=== PATIENT | female | born 1985 | race Caucasian/White ===

== ENCOUNTER 2022-07-21 19:31 | Outpatient (CLI) | payer BC, SELFPAY ==
--- NOTE | 2022-07-21 20:20 | PC.NURSE ---
2013- PAGED DR. ABBY COLUNGA
--- NOTE | 2022-07-21 20:32 | PC.NURSE ---
2025- DR. ABBY COLUNGA RETURNED PAGE. INFORMED OF PT ADMISSION FOR R/O ROM. ROMPLUS-NEGATIVE. NST-REACTIVE. ORDERS RECEIVED TO D/C HOME WITH INSTRUCTIONS ON WHEN TO RETURN TO L&D.
== END 2022-07-21 19:32 | disposition home or self-care (01) ==
PROVIDERS: Visit Provider Obstetrics & Gynecology
DX: O26.851 Spotting complicating pregnancy, first trimester (principal); Z3A.00 Weeks of gestation of pregnancy not specified
CPT/HCPCS: 59025; 84112

== ENCOUNTER 2022-08-22 00:01 | Inpatient (IN) | payer BC, SELFPAY ==
[2022-08-22] VITALS (118 sets, daily range): BP systolic 56–138; BP diastolic 26–124; PULSE 55–146; RESP 16; TEMP 36.2–36.9; O2SAT 73–100; BMI 31.3
[2022-08-22 00:57] LABS: Basophils Percent Auto 0.3 % (0.2-1.2); Eosinophils Absolute Auto 0.1 K/mm3 (0-0.3); Eosinophils Percent Auto 1.2 % (0-4.4); Hematocrit 34.8 % (37.0-47.0); Hemoglobin 11.9 g/dL (12.0-15.0); Immature Granulocyte Absolute 0.15 K/mm3 (0.00-0.031); Immature Granulocyte Percent A 1.6 % (0-0.5); Lymphocytes Absolute Auto 1.76 K/mm3 (0.9-3.2); Lymphocytes Percent Auto 18.5 % (18.3-44.2); Mean Corpuscular HGB Conc 34.2 g/dl (32-36); Mean Corpuscular Hemoglobin 31.8 pg (26-34); Mean Platelet Volume 10.3 fl (7.4-10.4); Monocytes Absolute Auto 0.9 K/mm3 (0.1-0.6); Monocytes Percent Auto 9.1 % (2.6-8.5); Neutrophils Absolute Auto 6.6 K/mm3 (1.3-6.7); Neutrophils Percent Auto 69.3 % (45.5-73.1); Platelet Count Result 198 k/mm3 (150-375); Red Blood Count 3.74 M/mm3 (4.2-5.4); Red Cell Distribution Width 13.3 % (11.5-14.5); White Blood Count 9.5 K/mm3 (4.5-10.0)
[2022-08-22] MEDS: LACTATED RINGERS 1,000 ML 125 ML IV CONT ×2 (01:15→07:06)
[2022-08-22] MEDS: AMPICILLIN 2 GM/NS 100 ML 2 GM/100 ML BAG IVPB (01:15)
[2022-08-22] MEDS: OXYTOCIN 30 UNITS/NS 500 ML 30 UNITS/500 ML BAG IV CONT (01:15)
[2022-08-22] MEDS: AMPICILLIN 1 GM/NS 50 ML 1 GM/50 ML BAG IVPB ×2 (05:07→09:07)
[2022-08-22] MEDS: fentaNYL CITRATE INJ (*CRX) 100 MCG/2 ML VIAL IV PUSH (07:06)
[2022-08-22] MEDS: ONDANSETRON INJ 4 MG/2 ML VIAL IV PUSH (07:06)
--- NOTE | 2022-08-22 07:16 | WPDANESEPP ---
Anes - Eval Pre Procedure Procedure: labor epidural Date/Time: 08/22/22 07:16 Surgeon: min Preop Diagnosis: pain during labor Pre Op Diagnosis: IOL Patient Data Age: 37 Gender: F Height: 1.73 m Weight: 93.5 kg Last Vital Signs Temp 36.3 C L 08/22/22 06:31 Pulse 88 08/22/22 06:45 Resp 16 08/22/22 05:00 BP 119/60 08/22/22 06:45 O2 Del Method Room Air 08/22/22 00:41 Allergies Allergy/AdvReac Type Severity Reaction Status Date / Time No Known Allergies Allergy Verified 08/01/22 12:32 Home Medications Medication Instructions Recorded Confirmed Type vit no.95-ferrous 1 tablet PO DAILY 08/22/22 08/22/22 History fumarate 28 mg-folic acid 800 mcg tablet () Laboratory Tests 08/22/22 08/22/22 08/22/22 00:18 00:18 00:18 WBC 9.5 K/mm3 K/mm3 (4.5-10.0) RBC 3.74 M/mm3 L M/mm3 (4.2-5.4) Hgb 11.9 g/dL L g/dL (12.0-15.0) Hct 34.8 % L % (37.0-47.0) MCV 93.0 fl fl (80-100) MCH 31.8 pg pg (26-34) MCHC 34.2 g/dl g/dl (32-36) RDW 13.3 % % (11.5-14.5) Plt Count 198 k/mm3 k/mm3 (150-375) MPV 10.3 fl fl (7.4-10.4) Immature Gran % (Auto) 1.6 % H % (0-0.5) Neut % (Auto) 69.3 % % (45.5-73.1) Lymph % (Auto) 18.5 % % (18.3-44.2) [place] % (Auto) 9.1 % H % (2.6-8.5) Eos % (Auto) 1.2 % % (0-4.4) Baso % (Auto) 0.3 % % (0.2-1.2) Lymph # (Auto) 1.76 K/mm3 K/mm3 (0.9-3.2) [place] # (Auto) 0.9 K/mm3 H K/mm3 (0.1-0.6) Eos # (Auto) 0.1 K/mm3 K/mm3 (0-0.3) Baso # (Auto) 0.0 K/mm3 K/mm3 (0.0-0.1) Abs Immat Gran (auto) 0.15 K/mm3 H K/mm3 (0.00-0.031) Absolute Neuts (auto) 6.6 K/mm3 K/mm3 (1.3-6.7) Absolute Nucleated RBC 0.0 K/mm3 K/mm3 (0.0-0.012) Nucleated RBC % 0.0 % % (0.0-0.2) RPR Pending Blood Type A Positive Antibody Screen Negative Patient hx anesthesia problems: none Family hx anesthesia problems: none Results Review: All pre-operative results and documents have been reviewed as part of the pre-operative evaluation. [facility] Past Medical History Medical History (Updated 08/22/22 @ 07:16 by Morena Infante CRNA) IUP (intrauterine ), incidental Family History Family History (Updated 08/01/22 @ 12:34 by Kayla Lewis RN) Mother Epilepsy Grandparent Acute myocardial infarction Hypertension High cholesterol Grandparent Diabetes mellitus Hypertension Social History Social History Smoking status: Never smoker Second hand tobacco smoke exposure: No Substance use: never Lack of Transportation: No Lack of Food: Never True Current Housing: I Have Housing Concerned About Future Housing: No Difficulty Paying Gas/Electric Bills: No Difficulty Paying for Meds: No Currently Unemployed: No Education: Bachelor's Degree Difficulty w/ Childcare or Family Care: No Spiritual care concerns: No Exam Day of Procedure 08/22/22 07:16
--- NOTE | 2022-08-22 09:00 | WPDOBADMIT ---
Obstetrics - Admit Note Admission Note: record reviewed. Additions to the history and/or subsequent changes in the physical findings follow. 37 y/ol at 39 3/7 weeks gestation here for induction of labor. Receiving oxytocin IV, now feeling painful contractions. Has epidural which is functioning well on left side, but has a hot spot on the right. GBS pos, receiving ampicillin. AVSS NST reactive TOCO: contractions every 4-5 min ABD soft, nontender, gravid, vertex EXT nontender Cervix 4/80/-2. AROM with clear fluid. A: IUP at term with favorable cervix, desiring induction of labor. GBS pos. P: Oxytocin, ampicillin. Anticipate .
[2022-08-22 09:17] LABS: Rapid Plasma Reagin Non-Reactive (NonReactive)
[2022-08-22] MEDS: LIDOCAINE HCL 1% PF 30 ML VIAL (10:30)
--- NOTE | 2022-08-22 10:44 | PM.OBPRVD ---
OB - Delivery Note Procedure Delivery date: 08/22/22 Procedure: Induction of labor with Induction method: Per Pitocin Protocol Delivery augmentation: Rupture of Membranes Delivery monitor: External FHT and External Uterine Route of delivery: Episiotomy description: Midline Laceration Description: None Delivery repair: vicryl (3-0) Specimen: Yes (Cord blood) Quantitative Blood Loss (ml): 330 Anesthesia type: Epidural Disposition: PACU Complications: None Narrative: 37 y/o at 39 3/7 weeks gestation who presented to the hospital for induction of labor. Oxytocin was administered intravenously. She received ampicillin for GBS colonization. Amniotomy was performed with return of clear fluid. She received an epidural for pain control. Her labor progressed and her cervix dilated completely. She pushed and brought the head to the perineum. The perineum was infiltrated with 10 mL of 1% lidocaine and a midline episiotomy was performed. The infant's head delivered to the perineum, followed by the body. The nose and mouth were bulb suctioned. After a delay, the cord was clamped and cut. The was handed off the field. Cord blood was collected. The placenta delivered spontaneously and was grossly normal in appearance. The usual 3 vessel cord was noted. The episiotomy site was inspected and found to be free of extension. This was reapproximated using 3 0 Vicryl in the usual layered fashion. Excellent hemostasis resulted as did excellent reapproximation of the normal anatomy. Needle and instrument counts were correct. The patient was taken to recovery room in stable condition. The infant went to the nursery in stable condition. I was present and scrubbed for the entire delivery. [place] Baby Date of : 08/22/22 Time of : 10:26 Weeks of gestation at delivery: 39 gender: Male Weight (pounds): 8 Weight (ounces): 5 presentation: vertex position: Right Occiput Anterior Placenta delivery description: Spontaneous and Normal Configuration Cord Vessel Description: 3 Vessels and Delayed Cord Clamping score one minute: 8 score five minutes: 9
--- NOTE | 2022-08-22 10:44 | PM.OBDSVD ---
DS: Admitting Diagnosis Discharge Date 08/24/22 Admitting Diagnosis IUP at 39 3/7 weeks GBS positive DS: Discharge Diagnosis Discharge Diagnosis (1) (normal spontaneous vaginal delivery): Code(s): O80 - Encounter for full-term uncomplicated delivery Status: Acute (2) GBS (group B Streptococcus carrier), +RV culture, currently : Code(s): O99.820 - Streptococcus B carrier state complicating Status: Acute OB - DS: Summary OB Procedures : None OB Procedures Intrapartum: Spontaneous Vag Delivery, Episiotomy (midline) and GBS prophylaxis OB Procedures: : None Time Spent with Patient Time attestation: Total time spent providing and/or coordinating discharge services: DS: Data Data Completed and Pending Labs on day of discharge: Labs from last 24 hours 08/22/22 08/22/22 08/22/22 00:18 00:18 00:18 WBC 9.5 RBC 3.74 L Hgb 11.9 L Hct 34.8 L MCV 93.0 MCH 31.8 MCHC 34.2 RDW 13.3 Plt Count 198 MPV 10.3 Immature Gran % (Auto) 1.6 H Neut % (Auto) 69.3 Lymph % (Auto) 18.5 [place] % (Auto) 9.1 H Eos % (Auto) 1.2 Baso % (Auto) 0.3 Lymph # (Auto) 1.76 [place] # (Auto) 0.9 H Eos # (Auto) 0.1 Baso # (Auto) 0.0 Abs Immat Gran (auto) 0.15 H Absolute Neuts (auto) 6.6 Absolute Nucleated RBC 0.0 Nucleated RBC % 0.0 RPR Non-reactive Blood Type A Positive Antibody Screen Negative Discharge Plan Discharge Attending physician on discharge: Dandy Brennan Discharging Clinician: Dandy Brennan Patient Disposition: Home, Self-Care Activity: pelvic rest Diet: regular Discharge Instructions: Education: Mom and Baby Guide Given to: Mother Follow-Up: Call your delivering provider's office for an appointment to be seen in: 6 Weeks Mom and baby should come to the [facility] for the follow-up appointment. Appointment Date/Time: August 25, 2022 at 11:00 am What to expect at your follow-up visit: Blood Pressure Check Physical Assessment Call [phone] if you are unable to keep your appointment time. BREAST CARE: * Wear a snug supportive bra. * For engorgement discomfort: Bottle Feeding: * May apply ice packs * Do NOT pump milk from breasts, this will encourage your body to produce more milk *Take Ibuprofen 600 mg every 6 hours around the clock to help with pain and swelling EPISIOTOMY/PERINEAL CARE: * Until bleeding stops, use your rossy bottle after urinating * Change your pad frequently throughout the day * You may take sitz baths several times a day (fill your bathtub with warm water and soak for 20 minutes.) Do NOT bathe in the water * No tub baths until seen by your physician - You may shower ACTIVITY: * Rest as much as possible. * Do not exercise or lift anything heavier than your baby (such as laundry or other children.) * Avoid stairs or driving as much as possible for 2 weeks. * Do not put anything into the vagina. No douching, tampons, or sexual activity until seen by physician. NOTIFY PHYSICIAN IF YOU HAVE ANY QUESTIONS OR IF ANY OF THE FOLLOWING SYMPTOMS OCCUR: * If your vaginal area becomes red, swollen, or more painful than what you have experienced in the hospital. * If your vaginal bleeding becomes foul smelling. * If your vaginal bleeding becomes more heavy than a period or if your bleeding changes from the color it is now to a bright crayon red color. * If you experience a sharp, shooting pain in your calves. * If you discover a hard, reddened area on your breast or if you experience flu-like symptoms. DIET: * Eat regular, well-balanced meals. * Drink plenty of fluids daily. If , drink to thirst. Call or return if temperature above 100.4? F, increased abdominal pain, increased vaginal bleeding or any new problems. Patient Instructions: Caring for Your Baby (DC), Vaginal De
[2022-08-22] MEDS: OXYTOCIN 30 UNITS/NS 500 ML 30 UNITS/500 ML BAG 125 UNITS IV CONT (11:04)
[2022-08-22] MEDS: ACETAMINOPHEN 325 MG TABLET 650 MG PO (16:47)
[2022-08-22] MEDS: DOCUSATE SODIUM 100 MG CAPSULE PO (16:48)
[2022-08-23] MEDS: ACETAMINOPHEN 325 MG TABLET 650 MG PO (04:25)
[2022-08-23] MEDS: IBUPROFEN 600 MG TABLET PO ×2 (04:25→17:00)
[2022-08-23 05:20] LABS: Hematocrit 36.6 % (37.0-47.0); Hemoglobin 11.6 g/dL (12.0-15.0)
[2022-08-23 08:20] VITALS: BP 115/66; PULSE 72; RESP 16; TEMP 36.8; O2SAT 100
--- NOTE | 2022-08-23 08:50 | PM.OBPNVD ---
OB - PN: Subj Subjective Date/time seen: 08/23/22 08:50 Narrative: Pain OK. Would like circumcision for son. OB - PN: Obj Data Labs 08/23/22 04:22 Labs: Laboratory Results - last 24 hr 08/22/22 08/23/22 00:18 04:22 Hgb 11.6 L Hct 36.6 L RPR Non-reactive OB - PN A/P Plan Comments: A: PPD#1, doing well. P: Reviewed circ. Routine care. Exam Psych: Other: AVSS ABD soft, nontender, fundus firm EXT nontender
[2022-08-23 09:30] VITALS: PULSE 72; RESP 16; O2SAT 100
[2022-08-23] MEDS: MULTIVIT/MIN/PREN/FOL AC/IRON TABLET 1 TAB PO (09:30)
[2022-08-23] MEDS: DOCUSATE SODIUM 100 MG CAPSULE PO ×2 (09:30→17:00)
--- NOTE | 2022-08-23 10:33 | WPDANLDPN2 ---
Anes-Prog Note L&D Date/Time: 08/23/22 10:33 Comfortable throughout: labor and delivery Neuraxial method: epidural Epidural/Spinal procedure site: clean & non-tender Neuro status: Neuro function grossly intact. Cardiovascular status: normal Respiratory status: normal Airway patency: baseline Mental status: baseline Post-Op hydration status: normal Vital Signs: Last Vital Signs Temp 98.2 F 08/23/22 08:20 Pulse 72 08/23/22 09:30 Resp 16 08/23/22 09:30 BP 115/66 08/23/22 08:20 Pulse Ox 100 08/23/22 09:30 O2 Del Method Room Air 08/23/22 09:30 Pain score (VAS): 0/10 I/O: Intake & Output 08/22/22 08/23/22 08/23/22 23:59 07:59 15:59 Intake Total 500 500 Balance 500 500 Post-procedural complaints: none Patient feedback: Patient satisfied with anesthetic care.
[2022-08-23 19:38] VITALS: BP 112/64; PULSE 88; RESP 16; TEMP 36.7
[2022-08-24] MEDS: ACETAMINOPHEN 325 MG TABLET 650 MG PO (05:00)
[2022-08-24] MEDS: IBUPROFEN 600 MG TABLET PO (05:00)
[2022-08-24 07:10] VITALS: PULSE 88; RESP 16; O2SAT 100
[2022-08-24] MEDS: MULTIVIT/MIN/PREN/FOL AC/IRON TABLET 1 TAB PO (08:00)
[2022-08-24] MEDS: DOCUSATE SODIUM 100 MG CAPSULE PO (08:00)
[2022-08-24 08:30] VITALS: BP 117/76; PULSE 86; RESP 18; TEMP 36.7; O2SAT 100
--- NOTE | 2022-08-24 08:56 | PM.OBPNVD ---
OB - PN: Subj Subjective Date/time seen: 08/24/22 08:56 Narrative: Pain OK. Would like to go home. OB - PN: Obj Data Labs 08/23/22 04:22 OB - PN A/P Plan Comments: A: PPD#2, doing well. P: Home to f/u 6 weeks. Exam Psych: Other: AVSS ABD soft, nontender, fundus firm EXT nontender
== END 2022-08-24 11:15 | disposition home or self-care (01) | DRG 807 ==
LOC: ANHLDR 00:07 → ANHOB2 13:45
PROVIDERS: Admitting Provider Obstetrics & Gynecology; Visit Provider Obstetrics & Gynecology
DX: O99.824 Streptococcus B carrier state complicating childbirth (principal); Z37.0 Single live birth; Z3A.39 39 weeks gestation of pregnancy; O36.8330 Maternal care for abnormalities of the fetal heart rate or rhythm, third trimester, not applicable or unspecified
CPT/HCPCS: 36415; 85014; 85018; 85025; 86592; 86850; 86900; 86901; A9270; J0290; J2405; J2590; J2795; J3010; J7120